=== PATIENT | male | born 1960 | race Caucasian/White ===

== ENCOUNTER 2022-04-23 16:24 | Inpatient (IN) | payer OTHER, SELFPAY ==
[2022-04-23] VITALS (42 sets, daily range): BP systolic 57–125; BP diastolic 32–110; PULSE 71–137; RESP 14–26; TEMP 32.1–36.6; O2SAT 93–100
--- NOTE | ~2022-04-23 | XR_ITS ---
EXAMINATION: XR chest ET placement DATE: 04/24/2022 00:28 INDICATION: Endotracheal tube repositioning. TECHNIQUE: A single frontal view of the chest was obtained. COMPARISON: Chest single view 04/23/2022, chest CT 04/23/2022 FINDINGS: There is no pneumonia, pleural effusion, or pneumothorax. The heart size is normal. The end otracheal tube tip is 3.8 cm above the cosmo. The nasogastric tube tip is in the stomach. IMPRESSION: 1. No acute cardiopulmonary disease. Reviewed, dictated and finalized at location A. ODULE ASSEMBLY SUPERVISOR
--- NOTE | ~2022-04-23 | XR_ITS ---
EXAMINATION: XR abdomen NG/feed tube insert INDICATION: Nasogastric tube insertion TECHNIQUE: Portable AP KUB-NG at 1746 hours COMPARISON: None available FINDINGS: The nasogastric tube is in the stomach. There is moderate distention of large and small bow el in the midabdomen and left upper quadrant. IMPRESSION: 1. Nasogastric tube in the stomach. 2. Dilated large and small bowel, consistent with ileus versus partial obstruction. Reviewed, dictated and finalized at location F. LEDGE MANAGEMENT CONSULTANT IMPRESSION: 1. Nasogastric tube in the stomach. 2. Dilated large and small bowel, consistent with ileus versus partial obstruct ion.
--- NOTE | ~2022-04-23 | CT_ITS ---
EXAMINATION: CT chest abdomen pelvis wo con DATE: 04/23/2022 20:25 INDICATION: Altered mental status, respiratory failure, diabetes TECHNIQUE: Transaxial computed tomographic images of the chest, abdomen, and pelvis were obtained wit hout intravenous contrast. The dose-length product (DLP) was 1085.52 mGy-cm. Automated exposure contr ol and iterative reconstruction technique were employed. COMPARISON: None FINDINGS: CHEST CT: There is mild dependent atelectasis. No pleural effusion or pneumothorax. No pathologically enlarged thoracic lymph nodes are identified. The heart size is normal. Calcified coronary artery atherosclero sis is noted. There is mild bilateral gynecomastia. There is mild thoracic spondylosis. ABDOMEN/PELVIS CT: The nasogastric tube is in the stomach. Respiratory motion artifact somewhat limits evaluation of the upper abdomen. The liver, spleen, pancreas, gallbladder, and adrenal glands appear normal. The kidne ys are unremarkable. No pathologically enlarged abdominal or pelvic lymph nodes are identified. The d istal duodenum and proximal jejunum are mildly distended. No free intraperitoneal gas is identified. The bladder is decompressed by Schroeder catheter. There is mild lower lumbar spondylosis. A fat-containi ng umbilical hernia is noted. There is a right femoral venous catheter. IMPRESSION: 1. Mild dependent atelectasis of the lungs. 2. Mild distention of the distal duodenum and proximal jejunum, likely ileus. Reviewed, dictated and finalized at location F. N WINDER
--- NOTE | ~2022-04-23 | CT_ITS ---
EXAMINATION: CT brain wo con INDICATION: Headache COMPARISON: 03/11/2017 TECHNIQUE: Standard unenhanced head CT. The dose-length product (DLP) was 605.33 mGy-cm. The mA was a djusted according to patient size. Iterative reconstruction technique was employed. FINDINGS: The examination is limited by motion and streak artifact. There is no intracranial hemorrha ge, acute infarction, or abnormal mass lesion. The ventricles are normal. There is no abnormal mass e ffect or midline shift. The sosa-white matter differentiation is normal. The basal cisterns are paten t. The orbits are normal. The paranasal sinuses, mastoids and calvarium are normal. IMPRESSION: 1. No acute intracranial abnormality, examination slightly limited by motion and streak artifact. Reviewed, dictated and finalized at location F. ERCIAL FIELD INSPECTOR IMPRESSION: 1. No acute intracranial abnormality, examination slightly limited by motion an d streak artifact.
--- NOTE | ~2022-04-23 | XR_ITS ---
EXAMINATION: XR chest 1V portable INDICATION: Respiratory failure TECHNIQUE: Portable AP chest at 1633 hours COMPARISON: 05/05/2014 FINDINGS: The endotracheal tube ends approximately 2.1 cm above the cosmo. The lungs are free of acu te opacities. No pleural effusion or pneumothorax. The cardiomediastinal silhouette is normal. IMPRESSION: 1. Endotracheal tube 2.1 cm above the cosmo. No acute cardiopulmonary abnormality. Reviewed, dictated and finalized at location F. BAG ASSEMBLER IMPRESSION: 1. Endotracheal tube 2.1 cm above the cosmo. No acute cardiopulmonary abnormal ity.
--- NOTE | 2022-04-23 16:30 | ECG_ITS ---
Measurements Intervals [place] Rate: 75 P: 82 [place]: 192 QRS: 28 QRSD: 99 T: 6 QT: 392 QTc: 438 Interpretive Statements ATRIAL FLUTTER/TACHYCARDIA WITH NORMAL VENTRICULAR RATE MINIMAL WAVES- INFERIOR LEADS BASELINE ARTIFACT- III, AVF ABNORMAL ECG NO PREVIOUS ECG AVAILABLE FOR COMPARISON Electronically Signed On 04-23-2022 17:03:55 HISTORIOGRAPHY TEACHER by Barron Sam D.O.
--- NOTE | 2022-04-23 16:31 | ED.SOB ---
HPI - SOB/Dyspnea General Chief Complaint: Shortness of Breath/Dyspnea Stated Complaint: resp arrest Time Seen by Provider: 04/23/22 16:29 History of Present Illness HPI Narrative: Patient is a 61-year-old male presenting with altered mental status. Patient reportedly did not show up to work today which is very unlike him so a wellness check was performed. They found him unresponsive on the floor foaming at the mouth. EMS intubated in the field and brought him in for evaluation. They state that the daughter reports his only medical problem is hypertension. Further history limited secondary to mental status. Related Data Home Medications Medication Instructions Recorded Confirmed insulin glargine U-300 conc 300 36 unit subcut DAILY 04/23/22 04/23/22 unit/mL (3 mL) subcutaneous pen (Toujeo Max U-300 SoloStar) Allergies Allergy/AdvReac Type Severity Reaction Status Date / Time amoxicillin Allergy Unknown Rash Verified 04/23/22 17:09 Review of Systems Review of Systems: All systems reviewed & are unremarkable except as noted in HPI and below PMFSH Past Medical History Medical History (Updated 04/24/22 @ 04:53 by Gisela Shaikh, ) Chronic midline low back pain Diabetes mellitus with hyperglycemia, with long-term current use of insulin fasting glucose 191 with hemoglobin A1c 13.3 on 06/02/2020. Glucose 208 with hemoglobin A1c 12.8 on 04/10/2021. Glucose 112 with hemoglobin A1c 11.1 on 01/13/2022. 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 Total cholesterol 230, HDL 58, triglycerides 126, LDL 147 on 04/10/2021. Total cholesterol 221, triglycerides 116, HDL 63, LDL 136 on 01/13/2022. Overweight (BMI 25.0-29.9) Plantar fasciitis of left foot Vitamin B12 deficiency anemia, unspecified greater than 2000 on 04/10/2021 Vitamin D deficiency, unspecified level normal at 52 on 04/10/2021 Surgical History Surgical History Surgical history unknown Family History Family History Mother Patient's mother is in good health Social History Social History (Updated 04/23/22 @ 21:18 by Gisela Shaikh DO) Social History: Code status: Full code Smoking status: Current some day smoker Tobacco type: cigars Second hand tobacco smoke exposure: Yes Alcohol intake: current Substance use: unknown Substance use type: does not use Current Housing: Decline to Answer Concerned About Future Housing: Decline to Answer Difficulty Paying Gas/Electric Bills: Decline to Answer Difficulty Paying for Meds: Decline to Answer Currently Unemployed: Decline to Answer Education: Decline to Answer Difficulty w/ Childcare or Family Care: Decline to Answer Spiritual care concerns: No Exam Narrative: GENERAL: Unresponsive male, intubated, being bagged HEAD: Normocephalic, atraumatic. EYES: PERRLA ENT: Nares clear, no rhinorrhea or epistaxis NECK: Supple. CHEST: Intubated, coarse sounds bilaterally HEART: Regular rate and rhythm. Normal peripheral pulses. ABDOMEN: Soft, nontender, nondistended EXTREMITIES: Normal range of motion. No edema. SKIN: Cool to the touch NEURO: Unresponsive PSYCH: Unresponsive Course Vital Signs Vital signs: Vital Signs Temperature 89.7 F L 04/23/22 16:25 Pulse Rate 80 04/23/22 16:25 Respiratory Rate 24 H 04/23/22 16:25 Blood Pressure 125/110 H 04/23/22 16:25 Pulse Oximetry 98 04/23/22 16:25 Oxygen Delivery Bag Valve Mask 04/23/22 16:25 Temperature 99.1 F 04/24/22
[2022-04-23] MEDS: SODIUM CHLORIDE 0.9% IV 1,000 ML 999 ML IV CONT ×6 (16:45→23:40)
[2022-04-23 16:56] LABS: Basophils Absolute Auto 0.1 K/mm3 (0.0-0.1); Basophils Percent Auto 0.5 % (0.2-1.2); Eosinophils Percent Auto 0.1 % (0-4.4); Hemoglobin 15.3 g/dL (14.0-18.0); Immature Granulocyte Absolute 0.42 K/mm3 (0.00-0.031); Immature Granulocyte Percent A 2.5 % (0-0.5); Lymphocytes Absolute Auto 1.85 K/mm3 (0.9-3.2); Lymphocytes Percent Auto 10.9 % (18.3-44.2); Mean Corpuscular HGB Conc 32.6 g/dl (32-36); Mean Corpuscular Hemoglobin 32.1 pg (26-34); Mean Corpuscular Volume 98.5 fl (80-100); Mean Platelet Volume 12.4 fl (7.4-10.4); Monocytes Absolute Auto 0.2 K/mm3 (0.1-0.6); Monocytes Percent Auto 1.2 % (2.6-8.5); Neutrophils Absolute Auto 14.4 K/mm3 (1.3-6.7); Neutrophils Percent Auto 84.8 % (45.5-73.1); Platelet Count Result 236 k/mm3 (150-375); Red Blood Count 4.77 M/mm3 (4.6-6.20); Red Cell Distribution Width 12.8 % (11.5-14.5)
[2022-04-23 17:02] LABS: INR 1.2; Partial Thromboplastin Time 33.3 SECONDS (22.3-36.8)
[2022-04-23 17:05] LABS: Lactic Acid Reflex 3.6 mmol/L (0.7-2.0)
[2022-04-23 17:06] LABS: Appearance Urine Clear (Clear); Bacteria Urine None Seen /hpf; Bilirubin Urine Negative (Negative); Blood Urine Negative (Negative); Color Urine Yellow (Yellow); Glucose Urine UA 3+ mg/dL (Negative); Ketones Urine 4+ mg/dL (Negative); Leukocyte Esterase Ur Negative LEU/UL (Negative); Nitrate Urine Negative (Negative); Protein Urine 1+ mg/dL (Negative); RBC Urine 0-2 /hpf (0-2); Specific Grav Ur 1.027 (1.001-1.035); Squamous Epithelial Cell Urine None seen /hpf (Few); Urobilinogen Urine 0.2 mg/dL (<2.0); WBC Urine 0-5 /hpf
--- NOTE | 2022-04-23 17:08 | PC.NURSE ---
ANNA Lincoln made aware of pt's BP. ANNA Lincoln at bedside for central line placement.
[2022-04-23 17:16] LABS: Add Urine Microscopic? YES
[2022-04-23] MEDS: NOREPINEPHRINE 8 MG/D5W 250 ML 8 MG/250 ML BAG 9.38 MG IV CONT (17:20)
--- NOTE | 2022-04-23 17:32 | PC.NURSE ---
Levophed started at 1720 after central line placement by EDP. Started at 5mcg/min. Increased to 9 mcg/min at 1733.
[2022-04-23 17:45] LABS: Alveolar/Arterial O2 Gradient 238.5 mmHg; Base Excess ABG -29.5 mEq/l (+/-2.0); Fractional Inspired Oxygen 100 %; HCO3 ABG 3.2 mEq/l (22.0-26.0); Oxygen Content ABG 22.1 %vol (16.0-22.0); Oxygen Saturation ABG 99.6 % (95.0-100.0); Oxyhemoglobin 97.9 % THb (90.0-100.0); PO2 ABG 456.2 mmHg (80.0-100.0); PO2 FiO2 Ratio Arterial Blood 4.56 %; Total Hemoglobin 15.2 g/dL (12.0-18.0)
[2022-04-23 17:48] LABS: Arterial Blood Gas Vent Mode CMV; Arterial Blood Gas Ventilator rate 18 /MIN; Device VENTILATOR; PCO2 ABG 18.3 mmHg (35.0-45.0); Site Drawn LEFT BRACHIAL; pH ABG 6.859 (7.350-7.450)
[2022-04-23 17:49] LABS: Arterial Blood Gas PEEP 7 cmH2O; Arterial Blood Gas Tidal Volume 350 ml
[2022-04-23] MEDS: VASOPRESSIN INJ 100 UNITS in DEXTROSE 5% 95 ML IV CONT (18:03)
[2022-04-23 18:14] LABS: Ethanol < 10 mg/dL (<10); Lipase 210 U/L (23-300)
[2022-04-23 18:24] LABS: NT Pro B Type Natriuretic Pept 866 pg/mL (19.9-100)
[2022-04-23] MEDS: FENTANYL 2,500MCG/NS250ML(*CRX 2,500 MCG/250 ML BAG IV CONT (18:40)
[2022-04-23 18:52] LABS: Creatine Kinase 2656 U/L (55-170)
[2022-04-23 18:54] LABS: Troponin I 0.063 ng/mL (0.000-0.034)
--- NOTE | 2022-04-23 18:55 | ECG_ITS ---
Measurements Intervals [place] Rate: 83 P: 74 [place]: 212 QRS: 28 QRSD: 105 T: 65 QT: 379 QTc: 447 Interpretive Statements ATRIAL FLUTTER/TACHYCARDIA WITH NORMAL VENTRICULAR RATE LOW QRS VOLTAGE IN LIMB LEADS BASELINE ARTIFACT- II, III, AVR, AVL, AVF ABNORMAL ECG COMPARED TO ECG 04/23/2022 16:40:15 NO SIGNIFICANT CHANGES Electronically Signed On 04-24-2022 6:40:42 MANAGER SALT by Barron Sam D.O.
--- NOTE | 2022-04-23 19:15 | PC.NURSE ---
assumed care. pt ventilated and awake/blinking. pt in restraints. Dr. Lincoln ordered versed IVP and to increase the fentanyl drip.
[2022-04-23 19:22] LABS: Alanine Aminotransferase 43 U/L (6-50); Alkaline Phosphatase 108 U/L (38-126); Aspartate Amino Transferase 106 U/L (17-59); Bilirubin,Total 1.1 mg/dL (0.2-1.3); Blood Urea Nitrogen 44 mg/dL (9-20); Calcium 8.4 mg/dL (8.4-10.2); Carbon Dioxide < 5 mmol/L (22-30); Chloride 95 mmol/L (98-107); Estimated CRCL calculation 20 ml/min; Estimated Glomerular Filt Rate 17; Glucose 1103 mg/dL (65-110); Potassium 7.8 mmol/L (3.4-5.0); Sodium 120 mmol/L (137-145)
[2022-04-23] MEDS: INSULIN HUMAN REGULAR (*BKC) 100 UNITS/ML 8 UNITS IV PUSH (19:28)
[2022-04-23] MEDS: MIDAZOLAM HCL (*CRX) 2 MG/2 ML VIAL (19:33)
[2022-04-23 19:48] LABS: Reflex Lactic Acid Yes or No Add Lactic
[2022-04-23] MEDS: INSULIN HUMAN REGULAR (*BKC) 100 UNITS in SODIUM CHLORIDE 0.9% IV 99 ML 21 UNITS IV CONT (19:54)
--- NOTE | 2022-04-23 20:10 | PC.NURSE ---
pt more sedated. restraints removed. family at bedside.
--- NOTE | 2022-04-23 20:38 | PM.IMHP ---
H&P: HPI History of Present Illness Date/Time: 04/23/22 20:38 Chief Complaint: Found on the floor unresponsive Narrative: 61-year-old male with past medical history of insulin-dependent diabetes mellitus and hyperlipidemia who presented to the ER after being found down unresponsive at home by EMS. Patient was intubated in the field as a found with frothy excretions from his mouth. The patient's glucoses reportedly 340 in the field but initial BMP in the ER demonstrated glucose greater than 1100. The patient's initial EKG demonstrated AV block with regular rate and peaked T-waves. When BMP returned and found the patient had a potassium 7.8 and a sodium of 120. The patient's temperature on arrival was 89?. In the field the patient oxygen saturations were 70%. He has a 7.[address]. Chest x-ray on arrival to the ER demonstrated ET tube was 2 cm above the cosmo. ER physician stated that the ET tube was adjusted but she does not know fails adjusted prior to chest x-ray were after chest x-ray. An emergent femoral line was placed but was not placed in most sterile conditions due to the patient's condition. I went down to evaluate the patient in the ER and the patient's blood pressures at that time were in the upper 80s systolic. I increase the patient's Levophed. He was already maxed out on vasopressor. He had a bicarb drip running at 50 mL an hour. He had received 7 units of IV insulin and was on insulin drip. He had received 4 L of isotonic fluids. He had approximately 350 mL of urine output. Schroeder catheter was placed all patient was in the ER. Before the patient could be transferred up to the ICU his blood pressures dropped into the 70s. I ordered phenylephrine which was started in the ER. The exact amount given was uncertain as the ER pumps when not calculate the appropriate dose. When the patient arrived to the ICU the patient's blood pressures were still in the 70s. I placed an emergent left femoral art line. I did get a flash with the 1st attempt but was unable to maintain output from the puncture site and had to perform another attempt. At the side of the 1st attempt a small hematoma did form but pressure was held after art line was obtained. After art line was obtained blood pressures were in the 1 teens systolic with diastolics in the 40s. A 5 L of fluids was being administered. A 4th pressor was ordered. Stat labs were obtained from the arterial site including ABG which demonstrated improved pH of 7.06 and a pCO2 of 23 PO2 of 487 on 100% FiO2 with correlating pulse ox of 93%. Initially the patient's lactic acid had improved from 3.6 down to 1.9 but repeat lactic acid after the patient's change in condition demonstrated lactic acid of 2.7. Repeat labs at this time are pending otherwise. Nursing staff has called and updated the patient's family on the change in patient condition. Review of Systems Review of Systems: ROS unobtainable: Yes unobtainable due to endotracheal tube PMFSH Past Medical History Medical History (Updated 04/23/22 @ 21:39 by Gisela Shaikh DO) Chronic midline low back pain Diabetes mellitus with hyperglycemia, with long-term current use of insulin fasting glucose 191 with hemoglobin A1c 13.3 on 06/02/2020. Glucose 208 with hemoglobin A1c 12.8 on 04/10/2021. Glucose 112 with hemoglobin A1c 11.1 on 01/13/2022. 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
[2022-04-23] MEDS: SODIUM BICARBONATE 8.4% 100 MEQ in WATER, STERILE FOR INJECTION 1,000 ML 50 MEQ IV CONT (20:48)
--- NOTE | 2022-04-23 20:50 | PC.NURSE ---
Dr. Shaikh at bedside and titrated levophed to 20mcg. also ordered to decrease the rate of fentanyl due to hypotension. states she will put order in for versed drip and dopamine if pt remains hypotensive.
[2022-04-23 21:09] LABS: Lactic Acid 1.9 mmol/L (0.7-2.0)
[2022-04-23] MEDS: CALCIUM GLUCONATE 1,000 MG/10 ML VIAL 1000 MG IV PUSH (21:17)
[2022-04-23] MEDS: SODIUM BICARBONATE 8.4% 50 MEQ/50 ML SYRINGE IV PUSH ×2 (21:17)
[2022-04-23] MEDS: INSULIN HUMAN REGULAR (*BKC) 100 UNITS/ML 10 UNITS IV PUSH (21:17)
[2022-04-23 21:28] LABS: Blood Urea Nitrogen 44 mg/dL (9-20); Calcium 7.9 mg/dL (8.4-10.2); Carbon Dioxide < 5 mmol/L (22-30); Chloride 94 mmol/L (98-107); Estimated CRCL calculation 20 ml/min; Estimated Glomerular Filt Rate 17; Glucose 1107 mg/dL (65-110); Sodium 118 mmol/L (137-145)
[2022-04-23 21:47] LABS: Troponin I 0.141 ng/mL (0.000-0.034)
[2022-04-23] MEDS: MIDAZOLAM HCL (*CRX) 2 MG/2 ML VIAL IV PUSH (21:47)
[2022-04-23] MEDS: SODIUM BICARBONATE 8.4% 150 MEQ in WATER, STERILE FOR INJECTION 1,000 ML IV CONT (22:15)
--- NOTE | 2022-04-23 22:15 | PC.NURSE ---
fentanyl paused due to hypotension. phenylephrine increased to 60mcg per protocol.
[2022-04-23] MEDS: DOPamine 400 MG/D5W 250 ML 400 MG/250 ML BAG 61.5 MG IV CONT (22:53)
[2022-04-23 22:57] LABS: Glucose Point of Care > 500 mg/dl (65-105)
[2022-04-23] MEDS: INSULIN HUMAN REGULAR (*BKC) 100 UNITS in SODIUM CHLORIDE 0.9% IV 99 ML 31.4 UNITS IV CONT (23:12)
[2022-04-23 23:27] LABS: Alveolar/Arterial O2 Gradient 202.3 mmHg; Base Excess ABG -22.1 mEq/l (+/-2.0); Carboxyhemoglobin 0.3 % THb (0-2.0); Fractional Inspired Oxygen 100 %; HCO3 ABG 6.5 mEq/l (22.0-26.0); Methemoglobin ABG 0.7 %THb (0-1.5); Oxygen Saturation ABG 99.8 % (95.0-100.0); Oxyhemoglobin 97.8 % THb (90.0-100.0); PO2 ABG 487.4 mmHg (80.0-100.0); PO2 FiO2 Ratio Arterial Blood 4.87 %; Reduced Hemoglobin 1.2 %THb (0-5.0); Total Hemoglobin 13.6 g/dL (12.0-18.0); pH ABG 7.066 (7.350-7.450)
[2022-04-23 23:28] LABS: Device VENTILATOR; PCO2 ABG 23.3 mmHg (35.0-45.0); Site Drawn ARTLINE
[2022-04-23 23:29] LABS: Arterial Blood Gas PEEP 5 cmH2O; Arterial Blood Gas Vent Mode CMV; Arterial Blood Gas Ventilator rate 25 /MIN
[2022-04-23 23:30] LABS: Arterial Blood Gas Tidal Volume 400 ml
[2022-04-23 23:39] LABS: INR 1.4; Prothrombin Time 16.5 Seconds (11.1-14.7)
[2022-04-23 23:40] LABS: Partial Thromboplastin Time 35.2 SECONDS (22.3-36.8)
[2022-04-23 23:41] LABS: Lactic Acid Reflex 2.7 mmol/L (0.7-2.0)
[2022-04-23] MEDS: NOREPINEPHRINE 8 MG/D5W 250 ML 8 MG/250 ML BAG 56.25 MG IV CONT (23:41)
[2022-04-23 23:46] LABS: Hemoglobin A1C 11.6 % (<5.7)
--- NOTE | 2022-04-23 23:51 | P.PCNBED_ITS ---
Procedures Arterial Line Arterial Line Date: 04/23/22 Arterial Line Time: 22:45 Perfomed Emergently - Given emergent patient conditions, temporal constraints may have precluded informed consent: Yes Time Out Performed: Yes Patient Position: trendelenburg Paintless Dent Repair Technician Prep: sterile gown, sterile gloves, mask and hat Site: left Site Prep: chlorhexidine and sterile drape Skin Anesthesia: none Technique used: ultrasound-guided (With ultrasound probe cover) Size (Gauge): 20 Length: 12 cm Closure/Dressing: suture, transparent dressing, hemostatic product, antimicrobial product and securement product Additional comments: Hematoma noted at 1 of the puncture sites. Multiple attempts were needed to obtain arterial access. There is a small hematoma about 2 in above where the art line was actually placed. Pressure was held. No bleeding from around the actual arterial line site.
[2022-04-23 23:59] LABS: D Dimer 2.47 ug/mL (<0.48); Fibrinogen 247 mg/dl (215-510)
[2022-04-24] VITALS (11 sets, daily range): BP systolic 67–96; BP diastolic 36–50; PULSE 113–138; RESP 20–23; TEMP 36.6–37.3; O2SAT 88–98; BMI 26.6
--- NOTE | 2022-04-24 00:01 | PC.NURSE ---
CALLED MOTHER BETHANIE GHOSH FOR ADMIT INFO. SHE HAD LIMITED INFO, DOES STATE HE HAS BEEN ESTRANGED FROM HIS DAUGHTERS AND JUST RECENTLY WAS BECOMING REAQUAINTED. SHE HAS NO CONTACT INFO FOR THE DAUGHTERS AND XIOMARA WOULD LIKE TO BE THE SPOKESPERSON FOR THE PATIENT.
--- NOTE | 2022-04-24 00:04 | PC.NURSE ---
CALLED [facility] FOR MED LIST. SPOKE WITH GORDY WHO PROVIDED UP TO DATE LIST.
[2022-04-24 00:07] LABS: Anion Gap 15 mmol/L (8-16); Blood Urea Nitrogen 46 mg/dL (9-20); Calcium 7.2 mg/dL (8.4-10.2); Carbon Dioxide 8 mmol/L (22-30); Chloride 104 mmol/L (98-107); Estimated CRCL calculation 23 ml/min; Estimated Glomerular Filt Rate 20; Glucose 798 mg/dL (65-110); Potassium 3.3 mmol/L (3.4-5.0); Sodium 127 mmol/L (137-145)
[2022-04-24] MEDS: SODIUM BICARBONATE 8.4% 50 MEQ/50 ML SYRINGE 100 MEQ IV PUSH (00:09)
--- NOTE | 2022-04-24 00:10 | ADMGEN ---
This patient, Linus Jha, was admitted to Intensive Care Unit-1 at 2232. Patient/family oriented to hospital policies and general routines including ID bracelet, bed and alarms, visiting hours, pain management, procedures, bathroom and other care routines, personal items, smoking policy, room service/diet, and visiting hours. Information on how to activate the Rapid Response Team has been discussed. Patient/Family are encouraged to report perceived risks to care and to ask questions if they do not understand what they are told or what they should do.
[2022-04-24 01:11] LABS: Glucose Point of Care > 500 mg/dl (65-105)
[2022-04-24] MEDS: HYDROCORTISONE SODIUM SUCCINATE 100 MG/2 ML VIAL IV PUSH (01:28)
[2022-04-24 01:55] LABS: Glucose 698 mg/dL (65-110)
[2022-04-24] MEDS: INSULIN HUMAN REGULAR (*BKC) 100 UNITS in SODIUM CHLORIDE 0.9% IV 99 ML 31.8 UNITS IV CONT (02:32)
[2022-04-24 03:10] LABS: Alveolar/Arterial O2 Gradient 500.6 mmHg; Base Excess ABG -14.4 mEq/l (+/-2.0); Fractional Inspired Oxygen 100 %; HCO3 ABG 10.3 mEq/l (22.0-26.0); Oxygen Saturation ABG 99.2 % (95.0-100.0); Oxyhemoglobin 97.3 % THb (90.0-100.0); PO2 ABG 189.8 mmHg (80.0-100.0); Total Hemoglobin 13.6 g/dL (12.0-18.0)
[2022-04-24 03:12] LABS: Device VENTILATOR; PCO2 ABG 22.6 mmHg (35.0-45.0); Site Drawn ARTLINE; pH ABG 7.277 (7.350-7.450)
[2022-04-24 03:13] LABS: Arterial Blood Gas PEEP 5 cmH2O; Arterial Blood Gas Tidal Volume 400 ml; Arterial Blood Gas Vent Mode CMV; Arterial Blood Gas Ventilator rate 25 /MIN
[2022-04-24] MEDS: MORPHINE SULFATE INJ (*CRX) 10 MG/ML AMP 6 MG IV PUSH (03:34)
--- NOTE | 2022-04-24 03:49 | PC.NURSE ---
Patient made comfort care by family. All drips discontinued with exception of Fentanyl drip at 0335 and ET removed per respiratory and NG tube removed per nursing.
[2022-04-24 03:52] LABS: Hematocrit 34.9 % (42.0-52.0); Hemoglobin 12.9 g/dL (14.0-18.0); Mean Corpuscular Hemoglobin 32.4 pg (26-34); Mean Corpuscular Volume 87.7 fl (80-100); Mean Platelet Volume 11.2 fl (7.4-10.4); Platelet Count Result 118 k/mm3 (150-375); Red Blood Count 3.98 M/mm3 (4.6-6.20); Red Cell Distribution Width 12.3 % (11.5-14.5); White Blood Count 5.7 K/mm3 (4.5-10.0)
--- NOTE | 2022-04-24 04:08 | PM.DDS ---
Discharge Summary Date and Time Date of : 04/24/22 Time of : 03:51 Provider Pronounced By: Charge nurse and ICU nurse Probable Cause of Probable Cause of : Septic shock resulting in multiorgan system failure DKA Summary Hospital Course: Patient was initially evaluated in the ER found have DKA, shock of uncertain source due to either sepsis or hypovolemia with acute kidney injury. Patient received aggressive IV fluid hydration insulin therapy and treatment for severe hyperkalemia with associated EKG changes. The patient was in acute respiratory failure when he found down at home and had been intubated in the field. He was placed on a ventilator with adequate ventilation and oxygenation. The patient was profoundly hypotensive in the ER and was placed on 2 pressors. Throughout the course of his hospitalization (proximally 8 hours) the patient received aggressive IV fluid hydration with 6 L fluid bolus, bicarb drip and antibiotic therapy. He received broad-spectrum antibiotics with cefepime and vancomycin. He was continued on insulin drip and received escalating pressor support with the patient being maxed out on Levophed, dopamine, vasopressin, epinephrine, and Jarad-Synephrine. The patient's pressors were actually increase beyond the the guidelines of hospital to try to improve the patient's blood pressure. Due to the patient's worsening clinical status we did contact the family and suggested that they come in to see the patient. At that time the patient's mother made the patient a DNR. She wanted the rest the family here before she would could make a determination whether not to continue with current therapy versus withdrawal of care. I went to re-evaluate the patient multiple times after midnight and had multiple discussions regarding the patient's prognosis. The patient's labs were repeated with ABG demonstrating continued acidosis but improving to 7.2 and low pCO2 consistent with hyperventilation to treat the patient's severe acidosis. The patient was still oxygenating well despite lobe pulse ox on pulse oximetry due to vaso constriction from pressor therapy. PO2 was 189. The family requested repeat labs be performed to further determine the patient's clinical status. After labs were drawn and before we get the results from the lab the family had opted to make the patient comfort measures only given his multiorgan system failure and evidence of septic shock. The patient had initially arrived in to the hospital with a temperature of 89? but did spike a fever greater than 100 and was having rigors. The patient's pressors were subsequently discontinued and the patient was terminally extubated at 03:35. The patient's art line went flat several minutes prior to cessation of cardiac activity. The patient was likely in PA. He initially went into asystole at 03:51 and was officially pronounced by nursing staff. 70 additional minutes was spent in critical care activities. Admission diagnosis: DKA with coma Acute hypoxic respiratory failure Shock indeterminate origin Acute renal failure likely with ATN Rhabdomyolysis Severe hyperkalemia Discharge diagnosis: DKA with coma Multiorgan system failure Septic shock Acute renal failure Rhabdomyolysis Hyperkalemia (resolved) Ileus Additional Data Confirmation of as documented by pronouncing clinician: Pupillary Reflex (Absent), Palpable Pulses (Absent), Response to Stimuli (Absent), Heart Tones (Absent) and Breath Sounds (Absent) Family: at bedside Additional persons at bedside: other (Nursing staff) Name of Provider Notified: Dr. Shaikh Time Provider Notified: 03:52 Was code activated?: No Provider Requests Autopsy: No Manager Fiber Notified: Yes Date [facility] Notified of : 04/24/22 Time [facility] Notified of : 04:20 Advance directives: No Hospice patient?: No
[2022-04-24 04:23] LABS: Alanine Aminotransferase 53 U/L (6-50); Alkaline Phosphatase 80 U/L (38-126); Anion Gap 16 mmol/L (8-16); Aspartate Amino Transferase 143 U/L (17-59); Blood Urea Nitrogen 47 mg/dL (9-20); Carbon Dioxide 12 mmol/L (22-30); Chloride 100 mmol/L (98-107); Estimated CRCL calculation 25 ml/min; Estimated Glomerular Filt Rate 21; Glucose 657 mg/dL (65-110); Magnesium 1.6 mg/dL (1.6-2.3); Potassium 2.3 mmol/L (3.4-5.0); Sodium 128 mmol/L (137-145)
--- NOTE | 2022-04-24 04:27 | PC.NURSE ---
TOD 0351. Family at bedside.
[2022-04-24 04:41] LABS: Band Neutrophils Percent 22 % (0-6); Eosinophils Absolute Manual 0.05 K/mm3 (0.02-0.5); Eosinophils Percent Manual 1 % (0-4); Lymphocytes Absolute Manual 0.45 K/mm3 (1.1-4.5); Metamyelocytes Percent 3 %; Neutrophils Absolute Manual 5.01 K/mm3 (1.3-6.7); Neutrophils Percent Manual 66 % (46-73); Platelet Estimate Adequate (Adequate); Total Cells Counted 100
[2022-04-24 04:42] LABS: Anisocytosis 1+ (NORMAL); Crenated RBC 1+ (NORMAL); Macrocytosis 1+ (NORMAL); Microcytosis 1+ (NORMAL); Schistocytes None Seen (NORMAL)
[2022-04-24 04:47] LABS: Creatine Kinase 3146 U/L (55-170)
[2022-04-24 04:55] LABS: Phosphorus < 1.0 mg/dL (2.5-4.5)
[2022-04-24 05:02] LABS: Glucose Point of Care > 500 mg/dl (65-105)
== END 2022-04-24 03:51 | disposition expired | DRG 871 ==
LOC: ANHED 21:17 → ANHICU 21:30
PROVIDERS: Admitting Provider Internal Medicine; Emergency Provider Emergency Medicine; PCP Family Medicine; Visit Provider Internal Medicine
DX: A41.9 Sepsis, unspecified organism (principal); E11.11 Type 2 diabetes mellitus with ketoacidosis with coma; R65.21 Severe sepsis with septic shock; N17.0 Acute kidney failure with tubular necrosis; J96.01 Acute respiratory failure with hypoxia; J69.0 Pneumonitis due to inhalation of food and vomit; J18.9 Pneumonia, unspecified organism; M62.82 Rhabdomyolysis; K56.7 Ileus, unspecified; R57.1 Hypovolemic shock; E87.5 Hyperkalemia; E11.3293 Type 2 diabetes mellitus with mild nonproliferative diabetic retinopathy without macular edema, bilateral; E78.2 Mixed hyperlipidemia; D51.9 Vitamin B12 deficiency anemia, unspecified; S40.022A Contusion of left upper arm, initial encounter; X58.XXXA Exposure to other specified factors, initial encounter; Z66 Do not resuscitate; Z79.4 Long term (current) use of insulin
CPT/HCPCS: 36415; 36556; 36600; 51702; 70450; 71045; 71250; 74176; 80048; 80053; 80307; 81001; 82375; 82550; 82805; 82947; 82948; 83036; 83050; 83605; 83690; 83735; 83880; 84100; 84484; 85025; 85380; 85384; 85610; 85730; 87040; 87081; 93005; 96361; 96365; 96366; 96367; 99291; A9270; C1751; J0171; J0610; J0692; J1265; J1720; J1815; J2250; J2270; J2370; J3010; J3370; J7030; J7050; J7060